=== PATIENT | female | born 1965 | race Caucasian/White ===

== ENCOUNTER 2016-04-19 12:55 | Emergency (ER) | payer OTHER ==
[~2016-04-19] VITALS: Ht 149.9 cm; Wt 63.5 kg
[2016-04-19 12:58] VITALS: TEMP 37.1; Ht 149.9 cm; Wt 63.5 kg
[2016-04-19] MEDS ORDERED: KETOROLAC TROMETHAMINE 30 MG/ML VIAL IV STA (13:14)
[2016-04-19] MEDS ORDERED: ONDANSETRON INJ 2 MG/ML 2 ML VIAL IV STA ×2 (13:14→15:13)
[2016-04-19] MEDS ORDERED: SODIUM CHLORIDE 0.9% 1000ML 1,000 ML IV STA (13:14)
[2016-04-19] MEDS ORDERED: CLR10 PO (13:28)
[2016-04-19] MEDS ORDERED: CYNI1000 SQ (13:28)
[2016-04-19] MEDS ORDERED: CHOL1000 PO (13:28)
[2016-04-19] MEDS ORDERED: DEXA0.5T PO (13:28)
[2016-04-19] MEDS ORDERED: ONDA4TAB46 PO (13:29)
[2016-04-19 13:33] LABS: BASO % 0.1 %; BASO ABS # 0.01 K/uL (0-0.2); COMPLETE YES; EOS % 0.4 %; IG% 0.3 %; LYMPH % 9.7 %; LYMPH ABS # 1.45 K/uL (1.2-3.4); MEAN CELL VOLUME 89.9 fL (80-100); MEAN CORPUSCULAR HEMOGLOBIN 31.7 pg (25-34); MEAN CORPUSCULAR HGB CONC 35.3 g/dl (32-36); MEAN PLATELET VOLUME 9.8 fL (7.4-10.4); MONO % 5.1 %; NEUT % 84.4 %; PLATELET COUNT 285 K/uL (130-400); RED BLOOD COUNT 5.23 M/uL (4.2-5.4); WHITE BLOOD COUNT 15.01 K/uL (4.8-10.8)
[2016-04-19 13:49] LABS: ALT/SGPT 21 U/L (12-78); BLOOD UREA NITROGEN 15 mg/dl (7-18); BUN/CREATININE RATIO 15.9 (10-20); CALCIUM 9.3 mg/dl (8.5-10.1); CARBON DIOXIDE 26 mmol/L (21-32); CHLORIDE 104 mmol/L (98-107); CREATININE 0.94 mg/dl (0.60-1.20); GLUCOSE 95 mg/dl (70-99); POTASSIUM 3.7 mmol/L (3.5-5.1); SODIUM 142 mmol/L (136-145)
[2016-04-19 13:52] LABS: ALKALINE PHOSPHATASE 68 U/L (45-117); AST/SGOT 13 U/L (15-37)
[2016-04-19] MEDS ORDERED: OPTIRAY 320 IV PRN (14:30)
[2016-04-19 14:57] LABS: URINE APPEARANCE CLEAR (CLEAR); URINE BILIRUBIN NEG (NEG); URINE COLOR YELLOW; URINE EPITHELIAL CELL AUTO >30 /lpf (0-5); URINE NITRITE NEG (NEG); URINE SPECIFIC GRAVITY 1.025 (1.000-1.030); UROBILINOGEN NEG (NEG); ZZUR CULT IF INDIC CLEAN CATCH YES
[2016-04-19] MEDS ORDERED: METOCLOPRAMIDE HCL INJ 5 MG/ML 2 ML VIAL IV STA (15:13)
[2016-04-19 15:14] LABS: MANUAL MICROSCOPIC REQUIRED? NO; REVIEW REQ? NO
[2016-04-19] MEDS ORDERED: ONDA4TAB10 SL (16:47)
[2016-04-19] MEDS ORDERED: ONDANSETRON HOME PACK 4MG OD TAB PO ONE (17:00)
--- NOTE | 2016-04-19 17:34 | DIAGNOSTIC IMAGING REPORT ---
CT OF THE ABDOMEN AND PELVIS WITH CONTRAST CLINICAL HISTORY: Abdominal pain. Leukocytosis. COMPARISON STUDY: CT of the abdomen and pelvis June 17, 2010. TECHNIQUE: Following IV administration of 119 mL of Optiray-320, axial images of the abdomen and pelvis were obtained from the lung bases to the proximal femurs. Images were reviewed in the axial, sagittal, and coronal planes. IV contrast was administered without complication. Oral contrast was administered. CT DOSE: 278.20 mGy.cm FINDINGS: The liver, spleen, adrenal glands, left kidney and pancreas are normal. A 1.4 cm water attenuation lesion arising from the upper pole of the right kidney is consistent with a cyst. Biliary ductal dilatation is unchanged since CT of June 17, 2010 and likely due to prior cholecystectomy. There is no pancreatic ductal dilatation. There is no peripancreatic infiltration. The caliber and wall thickness of small and large bowel are normal. There are scattered colonic diverticula. There is no evidence for acute diverticulitis. The appendix is normal. There is no lymphadenopathy. No pneumatosis, free air or portal venous gas is present. Skeletal structures are unremarkable. IMPRESSION: 1. No acute process within the abdomen or pelvis. Normal appendix. 2. Colonic diverticulosis without evidence for acute diverticulitis. 3. Stable biliary ductal dilatation since earlier CT. This is likely due to prior cholecystectomy. Electronically signed by: Gautam Fletcher M.D. 04/19/2016 5:32 PM Dictated Date/Time: 04/19/2016 5:26 PM
[2016-04-19 17:45] VITALS: BP 112/71; PULSE 98; O2SAT 98
--- NOTE | 2016-04-19 17:47 | EMERGENCY ROOM VISIT NOTE ---
History Report prepared by Zaria: Ute Kramer Under the Supervision of: Dr. Ignacio Lee M.D. First contact with patient: 13:05 Chief Complaint: GI ASSESSMENT Stated Complaint: STOMACH PAINS, NAUSEA Nursing Triage Summary: Pt c/o n/v/d since last night Pt also c/o diffuse abd pain History of Present Illness The patient is a 50 year old female who presents to the Emergency Room for a GI assessment. The patient has been experiencing nausea, vomiting, and diarrhea for the past 12 hours. She notes diffuse abdominal pain that she rates as a 5/ 10 in severity. She denies fever. 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 She notes that her family has been sick with similar symptoms. Source of History: patient Onset: 12 hours ago Position: abdomen (diffuse) Symptom Intensity: 5/10 Timing: constant Modifying Factors (Relieving): anti-emetics Associated Symptoms: + abdominal pain, + diarrhea, + nausea, + vomiting, No fevers Review of Systems See HPI for pertinent positives & negatives. A total of 10 systems reviewed and were otherwise negative. Past Medical & Surgical Surgical Problems: (1) H/O: hysterectomy (2) History of cholecystectomy Family History FH: cancer Hypertension Kidney disease Kidney stones Social History Smoking Status: Never Smoker Smokeless Tobacco Use: No Alcohol Use: none Marital Status: Housing Status: lives with significant other Occupation Status: unemployed Current/Historical Medications Scheduled Cholecalciferol (Vitamin D3), 1 TAB PO DAILY Cyanocobalamin (Cyanocobalamin), 1 DOSE SQ MONTHLY Dexamethasone (Dexamethasone), 0.25 MG PO DAILY Loratadine (Claritin), 10 MG PO DAILY Ondasetron Odt (Zofran Odt), 4 MG SL Q6H Scheduled PRN Ondansetron Hcl (Zofran), 4 MG PO Q6 PRN for Nausea Allergies Coded Allergies: Quinolones (Verified Allergy, Mild, 05/17/09) Ciprofloxacin (Unverified Allergy, Unknown, HIVES, 04/19/16) Sulfa Drugs (Verified Allergy, Unknown, HIVES, 04/19/16) Physical Exam Vital Signs Date Time Temp Pulse Resp B/P Pulse Ox O2 Delivery O2 Flow Rate FiO2 04/19/16 15:13 113 18 118/66 97 Room Air 04/19/16 12:58 37.1 120 18 120/66 97 Room Air Physical Exam CONSTITUTIONAL: Mild distress HEENT: No icterus, moist mucous membranes NECK: No meningismus, trachea is midline. CARDIOVASCULAR: Regular rate, normal perfusion RESPIRATORY: Unlabored breathing. Clear to auscultation. GASTROINTESTINAL: Minimal diffuse tenderness GENITOURINARY: No flank tenderness MUSCULOSKELETAL: Full range of motion NEUROLOGIC: No acute gross focal deficits. PSYCHIATRIC: Normal affect SKIN: Normal for ethnicity. Medical Decision & Procedures ER Provider Diagnostic Interpretation: Radiology results as stated below per my review and radiologist interpretation. CT OF THE ABDOMEN AND PELVIS WITH CONTRAST CLINICAL HISTORY: Abdominal pain. Leukocytosis. COMPARISON STUDY: CT of the abdomen and pelvis June 17, 2010. TECHNIQUE: Following IV administration of 119 mL of Optiray-320, axial images of the abdomen and pelvis were obtained from the lung bases to the proximal femurs. Images were reviewed in the axial, sagittal, and coronal planes. IV contrast was administered without complication. Oral contrast was administered. CT DOSE: 278.20 mGy.cm FINDINGS: The liver, spleen, adrenal glands, left kidney and pancreas are normal. A 1.4 cm water attenuation lesion arising from the upper pole of the right kidney is consistent with a cyst. Biliary ductal dilatation is unchanged since CT of June 17, 2010 and likely due to prior cholecystectomy. There is no pancreatic ductal dilatation. There is no peripancreatic infiltration. The caliber and wall thickness of small and large bowel are normal. There are scattered colonic diverticula. There is no evidence for acute diverticulitis. The appendix is normal. There is no lymphadenopathy. No pneumatosis, free air or portal venous gas is present. Skeletal structures are unremarkable. IMPRESSION: 1. No acute process within the abdomen or pelvis. Normal appendix. 2. Colonic diverticulosis without evidence for acute diverticulitis. 3. Stable biliary ductal dilatation since earlier CT. This is likely due to prior cholecystectomy. Electronically signed by: Gautam Fletcher M.D. 04/19/2016 5:32 PM Dictated Date/Time: 04/19/2016 5:26 PM Laboratory Results 04/19/16 13:20 Red Blood Count 5.23, Mean Corpuscular Volume 89.9, Mean Corpuscular Hemoglobin 31.7, Mean Corpuscular Hemoglobin Concent 35.3, Mean Platelet Volume 9.8, Neutrophils (%) (Auto) 84.4, Lymphocytes (%) (Auto) 9.7, Monocytes (%) (Auto) 5.1, Eosinophils (%) (Auto) 0.4, Basophils (%) (Auto) 0.1, Neutrophils # (Auto) 12.69, Lymphocytes # (Auto) 1.45, Monocytes # (Auto) 0.76, Eosinophils # (Auto) 0.06, Basophils # (Auto) 0.01 04/19/16 13:20 Test 04/19/16 13:20 04/19/16 14:15 White Blood Count 15.01 K/uL (4.8-10.8) Red Blood Count 5.23 M/uL (4.2-5.4) Hemoglobin 16.6 g/dL (12.0-16.0) Hematocrit 47.0 % (37-47) Mean Corpuscular Volume 89.9 fL (80-100) Mean Corpuscular Hemoglobin 31.7 pg (25-34) Mean Corpuscular Hemoglobin Concent 35.3 g/dl (32-36) Platelet Count 285 K/uL (130-400) Mean Platelet Volume 9.8 fL (7.4-10.4) Neutrophils (%) (Auto) 84.4 % Lymphocytes (%) (Auto) 9.7 % Monocytes (%) (Auto) 5.1 % Eosinophils (%) (Auto) 0.4 % Basophils (%) (Auto) 0.1 % Neutrophils # (Auto) 12.69 K/uL (1.4-6.5) Lymphocytes # (Auto) 1.45 K/uL (1.2-3.4) Monocytes # (Auto) 0.76 K/uL (0.11-0.59) Eosinophils # (Auto) 0.06 K/uL (0-0.5) Basophils # (Auto) 0.01 K/uL (0-0.2) RDW Standard Deviation 41.0 fL (36.4-46.3) RDW Coefficient of Variation 12.6 % (11.5-14.5) Immature Granulocyte % (Auto) 0.3 % Immature Granulocyte # (Auto) 0.04 K/uL (0.00-0.02) Anion Gap 12.0 mmol/L (3-11) Est Creatinine Clear Calc Drug Dose 58.0 ml/min Estimated GFR () 82.0 Estimated GFR (Non- 70.7 BUN/Creatinine Ratio 15.9 (10-20) Calcium Level 9.3 mg/dl (8.5-10.1) Total Bilirubin 0.5 mg/dl (0.2-1) Direct Bilirubin < 0.1 mg/dl (0-0.2) Aspartate Amino Transf (AST/SGOT) 13 U/L (15-37) Alanine Aminotransferase (ALT/SGPT) 21 U/L (12-78) Alkaline Phosphatase 68 U/L (45-117) Total Protein 8.0 gm/dl (6.4-8.2) Albumin 3.7 gm/dl (3.4-5.0) Lipase 84 U/L (73-393) Urine Color YELLOW Urine Appearance CLEAR (CLEAR) Urine pH 5.0 (4.5-7.5) Urine Specific [place] 1.025 (1.000-1.030) Urine Protein NEG (NEG) Urine Glucose (UA) NEG (NEG) Urine Ketones NEG (NEG) Urine Occult Blood 1+ (NEG) Urine Nitrite NEG (NEG) Urine Bilirubin NEG (NEG) Urine Urobilinogen NEG (NEG) Urine Leukocyte Esterase NEG (NEG) Urine WBC (Auto) 1-5 /hpf (0-5) Urine RBC (Auto) 0-4 /hpf (0-4) Urine Hyaline Casts (Auto) 1-5 /lpf (0-5) Urine Epithelial Cells (Auto) >30 /lpf (0-5) Urine Bacteria (Auto) 1+ (NEG) Labs reviewed by ED physician. Medications Administered Medications (Trade) Dose Ordered Sig/Veronika Route Start Time Stop Time Status Last Admin Dose Admin Ketorolac Tromethamine (Toradol Inj) 15 mg NOW STAT IV 04/19/16 13:14 04/19/16 13:16 DC 04/19/16 13:25 15 MG Ondansetron HCl 4 mg 4 mg NOW STAT IV 04/19/16 13:14 04/19/16 13:16 DC 04/19/16 13:25 4 MG Sodium Chloride (Nss 1000ml) 1,000 ml @ 0 mls/hr Q0M STAT IV 04/19/16 13:14 04/19/16 13:16 DC 04/19/16 13:25 999 MLS/HR Ondansetron HCl (Zofran Inj) 4 mg NOW STAT IV 04/19/16 15:13 04/19/16 15:15 DC 04/19/16 15:13 4 MG Metoclopramide HCl (Reglan Inj) 10 mg NOW STAT IV 04/19/16 15:13 04/19/16 15:15 DC 04/19/16 15:13 10 MG ED Course 1307: Past medical records reviewed. The patient was evaluated in room A9B. A complete history and physical examination was performed. 1314: NSS 1000 ml IV wide open, Zofran 4 mg IV, Toradol 15 mg IV 1455: I reassessed the patient at this time. She getting ready for CT. 1513: Reglan 10 mg IV, Zofran 4 mg IV 1700: Zofran 4 mg PO homepack 1741: I reassessed the patient at this time. She is feeling better and resting comfortably. I discussed the results and treatment plan with the patient. I answered all pertaining questions that she had. She expressed understanding and verbalized agreement. The patient will be discharged home. Medical Decision Differential diagnoses includes viral syndrome, electrolyte abnormality. 50-year-old presents to the emergency room for evaluation of roughly 1 day of vomiting abdominal pain and diarrhea. Hydration, antiemetics and labs were obtained. White count was noted to be 15.5 which is somewhat concerning with mild diffuse abdominal pain in this 50-year-old with a known history of diverticulitis. We discussed the pros and cons risks and benefits of CT versus observation as outpatient and decision made to obtain CT which was subsequently negative. Reexamination prior to discharge at 5:40 PM patient is comfortable. She was given Zofran home pack as well as prescription. Impression Primary Impression: Gastroenteritis Scribe Attestation The scribe's documentation has been prepared under my direction and personally reviewed by me in its entirety. I confirm that the note above accurately reflects all work, treatment, procedures, and medical decision making performed by me. Departure Information Dispostion Home / Self-Care Prescriptions Ondasetron Odt (ZOFRAN ODT) 4 Mg Tab 4 MG SL Q6H for Nausea, #20 TAB Prov: Ignacio Lee MD 04/19/16 Referrals No Doctor, Assigned (PCP) Sherry Ortiz M.D. Forms HOME CARE DOCUMENTATION FORM, IMPORTANT VISIT INFORMATION Patient Instructions A Signature Page, ED Gastroenteritis Viral, [facility]
== END 2016-04-19 17:46 | disposition home or self-care (01) ==
LOC: C.EDB 12:57 → C.EDA 17:46
DX: K52.9 Noninfective gastroenteritis and colitis, unspecified (principal)

== ENCOUNTER 2016-09-27 10:40 | Emergency (ER) | payer OTHER ==
[~2016-09-27] VITALS: Ht 149.9 cm; Wt 64.8 kg
[~2016-09-27 10:40] MED LIST: CHOL1000 PO; CLR10 PO; CYNI1000 SQ; DEXA0.5T PO; ONDA4TAB10 SL; ONDA4TAB46 PO
[2016-09-27 10:57] VITALS: TEMP 36.7; Ht 149.9 cm; Wt 64.8 kg
[2016-09-27] MEDS ORDERED: SODIUM CHLORIDE 0.9% 1000ML 1,000 ML IV STA ×2 (11:23→12:34)
[2016-09-27] MEDS ORDERED: ONDANSETRON INJ 2 MG/ML 2 ML VIAL IV STA (11:23)
[2016-09-27 11:37] LABS: BASO % 0.2 %; BASO ABS # 0.01 K/uL (0-0.2); COMPLETE YES; EOS % 0.6 %; HEMATOCRIT 48.4 % (37-47); IG% 0.3 %; LYMPH % 21.6 %; LYMPH ABS # 1.43 K/uL (1.2-3.4); MEAN CELL VOLUME 90.3 fL (80-100); MEAN CORPUSCULAR HEMOGLOBIN 30.4 pg (25-34); MEAN CORPUSCULAR HGB CONC 33.7 g/dl (32-36); MEAN PLATELET VOLUME 9.4 fL (7.4-10.4); MONO % 8.3 %; PLATELET COUNT 316 K/uL (130-400); RED BLOOD COUNT 5.36 M/uL (4.2-5.4); WHITE BLOOD COUNT 6.61 K/uL (4.8-10.8)
[2016-09-27 11:42] LABS: URINE APPEARANCE CLEAR (CLEAR); URINE BILIRUBIN NEG (NEG); URINE COLOR YELLOW; URINE EPITHELIAL CELL AUTO >30 /lpf (0-5); URINE NITRITE NEG (NEG); URINE PH 5.5 (4.5-7.5); URINE SPECIFIC GRAVITY 1.021 (1.000-1.030); UROBILINOGEN NEG (NEG)
[2016-09-27 11:45] LABS: BUN/CREATININE RATIO 8.7 (10-20); CALCIUM 8.8 mg/dl (8.5-10.1); CREATININE 0.95 mg/dl (0.60-1.20); POTASSIUM 3.8 mmol/L (3.5-5.1)
[2016-09-27 11:47] LABS: MANUAL MICROSCOPIC REQUIRED? NO; REVIEW REQ? NO
--- NOTE | 2016-09-27 15:52 | DIAGNOSTIC IMAGING REPORT ---
ABDOMINAL ULTRASOUND, RIGHT UPPER QUADRANT HISTORY: elevated liver enzymes, eval liver, gall stones. COMPARISON: Abdomen and pelvis CT 04/19/2016. FINDINGS: Pancreas: The pancreatic tail is obscured by overlying bowel gas. The remaining portions of the pancreas are within normal limits. Liver: Unremarkable. Gallbladder: The gallbladder is surgically absent. CBD: 9 mm. This remains unchanged. Right kidney: No hydronephrosis. Stable 1.4 cm cyst within the upper pole. IMPRESSION: 1. Cholecystectomy. 2. No change in the 9 mm common bile duct. This is likely due to the patient's postcholecystectomy state. Electronically signed by: Robert Funk M.D. 09/27/2016 3:51 PM Dictated Date/Time: 09/27/2016 3:49 PM
--- NOTE | 2016-09-27 16:29 | EMERGENCY ROOM VISIT NOTE ---
History First contact with patient: 11:04 Chief Complaint: DIARRHEA Stated Complaint: NAUSEA, DIARRHEA Nursing Triage Summary: Pt c/o n/v/d, started ; she was better Wednesday and Wednesday and then it started again today. Denies abdominal pain. History of Present Illness The patient is a 51 year old female who presents to the Emergency Room with complaints of diarrhea. Patient states 3 days ago she had several bouts of diarrhea associated with nausea, vomiting, and fevers up to 103. She took Imodium for the diarrhea which did seem to help. She has felt much better for the past 2 days, but her diarrhea returned again this morning. She states it is loose and sometimes watery, nonbloody and not black or coffee grounds appearing, 6 episodes so far today. Associated abdominal cramping with bowel movements only. She has associated nausea today but denies vomiting, fever/ chills, abdominal pain. Patient states that she had a salad with eggs on it the night before her initial symptoms started, but cannot think of anything else unusual she may have eaten recently. She denies any recent antibiotic use , travel, exposure to clean water, or recent sick contacts. She is able to keep fluids down, but states she has very little appetite. Past medical history significant for adrenal hyperplasia and on chronic steroids. Review of Systems A complete 10 point review of systems was reviewed with the patient with pertinent positives and negatives as per history of present illness. All else were negative. Past Medical/Surgical History Surgical Problems: (1) H/O: hysterectomy (2) History of cholecystectomy Family History FH: cancer Hypertension Kidney disease Kidney stones Social History Smoking Status: Never Smoker Alcohol Use: none Marital Status: Housing Status: lives with significant other Occupation Status: unemployed Current/Historical Medications Scheduled Cholecalciferol (Vitamin D3), 1 TAB PO DAILY Cyanocobalamin (Cyanocobalamin), 1 DOSE SQ MONTHLY Dexamethasone (Dexamethasone), 0.25 MG PO HS Loratadine (Claritin), 10 MG PO DAILY Scheduled PRN Ondansetron Hcl (Zofran), 4 MG PO Q6 PRN for Nausea Allergies Coded Allergies: Quinolones (Verified Allergy, Mild, 09/27/16) Ciprofloxacin (Unverified Allergy, Unknown, HIVES, 09/27/16) Sulfa Drugs (Verified Allergy, Unknown, HIVES, 09/27/16) Physical Exam Vital Signs Date Time Temp Pulse Resp B/P (MAP) Pulse Ox O2 Delivery O2 Flow Rate FiO2 09/27/16 17:32 84 16 103/71 96 09/27/16 16:20 87 09/27/16 15:48 79 18 114/75 98 09/27/16 14:14 86 17 115/61 99 Room Air 09/27/16 12:35 82 16 127/75 98 09/27/16 12:19 95 09/27/16 10:57 36.7 116 18 132/78 97 Room Air Physical Exam CONSTITUTIONAL: No acute distress. Nontoxic-appearing, moderately dehydrated. Alert and oriented X 4 with normal affect. HEENT: Normocephalic, atraumatic. Pupils equal, round and reactive to light, EOMI. TMs normal. Pharynx normal. Dry mucous membranes. NECK: Supple, full active range of motion without discomfort. RESPIRATORY: Clear to auscultation bilaterally with no wheezing, crackles, rhonchi or stridor. Equal expansion bilaterally. CARDIOVASCULAR: Regular rate and rhythm with no murmurs, rubs or gallops. Normal peripheral perfusion. No edema. GASTROINTESTINAL: Soft, nontender, nondistended. Normal bowel sounds present in all quadrants. MUSCULOSKELETAL: Full range of motion of all joints without discomfort. INTEGUMENTARY: No rash or other significant dermatologic conditions noted. NEUROLOGIC: Cranial nerves II-XII grossly intact. No focal neurologic deficits noted. Medical Decision & Procedures ER Provider Diagnostic Interpretation: ABDOMINAL ULTRASOUND, RIGHT UPPER QUADRANT HISTORY: elevated liver enzymes, eval liver, gall stones. COMPARISON: Abdomen and pelvis CT 04/19/2016. FINDINGS: Pancreas: The pancreatic tail is obscured by overlying bowel gas. The remaining portions of the pancreas are within normal limits. Liver: Unremarkable. Gallbladder: The gallbladder is surgically absent. CBD: 9 mm. This remains unchanged. Right kidney: No hydronephrosis. Stable 1.4 cm cyst within the upper pole. IMPRESSION: 1. Cholecystectomy. 2. No change in the 9 mm common bile duct. This is likely due to the patient's postcholecystectomy state. Laboratory Results 09/27/16 11:09 Red Blood Count 5.36, Mean Corpuscular Volume 90.3, Mean Corpuscular Hemoglobin 30.4, Mean Corpuscular Hemoglobin Concent 33.7, Mean Platelet Volume 9.4, Neutrophils (%) (Auto) 69.0, Lymphocytes (%) (Auto) 21.6, Monocytes (%) (Auto) 8.3, Eosinophils (%) (Auto) 0.6, Basophils (%) (Auto) 0.2, Neutrophils # (Auto) 4.56, Lymphocytes # (Auto) 1.43, Monocytes # (Auto) 0.55, Eosinophils # (Auto) 0.04, Basophils # (Auto) 0.01 09/27/16 11:09 Test 09/27/16 11:05 09/27/16 11:09 09/27/16 14:50 Urine Color YELLOW Urine Appearance CLEAR (CLEAR) Urine pH 5.5 (4.5-7.5) Urine Specific [place] 1.021 (1.000-1.030) Urine Protein NEG (NEG) Urine Glucose (UA) NEG (NEG) Urine Ketones 2+ (NEG) Urine Occult Blood 2+ (NEG) Urine Nitrite NEG (NEG) Urine Bilirubin NEG (NEG) Urine Urobilinogen NEG (NEG) Urine Leukocyte Esterase NEG (NEG) Urine WBC (Auto) 1-5 /hpf (0-5) Urine RBC (Auto) 0-4 /hpf (0-4) Urine Hyaline Casts (Auto) 5-10 /lpf (0-5) Urine Epithelial Cells (Auto) >30 /lpf (0-5) Urine Bacteria (Auto) 1+ (NEG) White Blood Count 6.61 K/uL (4.8-10.8) Red Blood Count 5.36 M/uL (4.2-5.4) Hemoglobin 16.3 g/dL (12.0-16.0) Hematocrit 48.4 % (37-47) Mean Corpuscular Volume 90.3 fL (80-100) Mean Corpuscular Hemoglobin 30.4 pg (25-34) Mean Corpuscular Hemoglobin Concent 33.7 g/dl (32-36) Platelet Count 316 K/uL (130-400) Mean Platelet Volume 9.4 fL (7.4-10.4) Neutrophils (%) (Auto) 69.0 % Lymphocytes (%) (Auto) 21.6 % Monocytes (%) (Auto) 8.3 % Eosinophils (%) (Auto) 0.6 % Basophils (%) (Auto) 0.2 % Neutrophils # (Auto) 4.56 K/uL (1.4-6.5) Lymphocytes # (Auto) 1.43 K/uL (1.2-3.4) Monocytes # (Auto) 0.55 K/uL (0.11-0.59) Eosinophils # (Auto) 0.04 K/uL (0-0.5) Basophils # (Auto) 0.01 K/uL (0-0.2) RDW Standard Deviation 42.4 fL (36.4-46.3) RDW Coefficient of Variation 12.9 % (11.5-14.5) Immature Granulocyte % (Auto) 0.3 % Immature Granulocyte # (Auto) 0.02 K/uL (0.00-0.02) Anion Gap 9.0 mmol/L (3-11) Est Creatinine Clear Calc Drug Dose 57.4 ml/min Estimated GFR () 80.4 Estimated GFR (Non- 69.4 BUN/Creatinine Ratio 8.7 (10-20) Calcium Level 8.8 mg/dl (8.5-10.1) Magnesium Level 2.0 mg/dl (1.8-2.4) Total Bilirubin 0.6 mg/dl (0.2-1) Direct Bilirubin 0.2 mg/dl (0-0.2) Aspartate Amino Transf (AST/SGOT) 83 U/L (15-37) Alanine Aminotransferase (ALT/SGPT) 448 U/L (12-78) Alkaline Phosphatase 148 U/L (45-117) Total Protein 8.3 gm/dl (6.4-8.2) Albumin 3.9 gm/dl (3.4-5.0) Lipase 87 U/L (73-393) Acetaminophen Level 2 ug/ml (10-30) Hepatitis B Surface Antigen NEG (NEG) Hepatitis C Antibody NEG (NEG) Medications Administered Medications (Trade) Dose Ordered Sig/Veronika Route Start Time Stop Time Status Last Admin Dose Admin Ondansetron HCl (Zofran Inj) 4 mg NOW STAT IV 09/27/16 11:23 09/27/16 11:27 DC 09/27/16 11:32 4 MG Sodium Chloride 1,000 ml @ 999 mls/hr Q1H1M STAT IV 09/27/16 11:23 09/27/16 12:23 DC 09/27/16 11:32 999 MLS/HR Sodium Chloride 1,000 ml @ 999 mls/hr Q1H1M STAT IV 09/27/16 12:34 09/27/16 13:34 DC 09/27/16 12:46 999 MLS/HR Medical Decision CC: Patient presenting with complaint of diarrhea Interpretation of Labs: No leukocytosis, no anemia, no significant electrolyte abnormalities, normal renal function. Significantly elevated liver enzymes which appears to be acute, with normal T bili, normal lipase. Acute hepatitis panel added, preliminary testing is negative, remaining testing sender out and pending. Differential Diagnosis: Includes, but not limited to gastroenteritis viral versus bacterial, food borne pathogen, diverticulitis, enterocolitis, dehydration, electrolyte abnormality, post viral hepatitis, acute hepatitis, pancreatitis, cholecystitis. Medication Reconciliation: I attest that I have personally reviewed the patient' s current medication list. Vital signs review: I reviewed the patient's vital signs and interpret them as follows: T: Afebrile; BP: Normotensive; HR: Tachycardic, resolved after IV fluids; RR: Within normal limits; Pulse Ox: Within normal limits on room air. Blood pressure screening: The patient was found to have normal blood pressure on screening and does not require follow-up for repeat blood pressure check. Summary: Patient was evaluated at bedside, history of physical exam performed. Patient is alert and oriented, in no acute distress and nontoxic appearing, resting calmly in the stretcher. She does appear somewhat dehydrated with dry oral mucous membranes and dry skin. Abdomen is soft and completely nontender to deep palpation, with normal bowel sounds present. Patient is afebrile with normal vital signs. Given that patient is well-appearing and has no abdominal tenderness on exam, and has had negative CT imaging done a few months ago of the abdomen/pelvis, will not perform CT imaging at this time. Orders were placed at bedside for labs, UA, IV fluid hydration, nausea medicine , stool culture to evaluate for infectious process. Patient discussed with Dr. Pruett, who agrees with my assessment and plan. Patient was able to provide stool sample, sent to lab for culture. I do not suspect C.diff due to partially formed stool, lack of significant risk factors, and well appearing. Labs reviewed, concerning for acute elevation of liver enzymes. Hepatitis panel ordered and right upper quadrant ultrasound done, which are unremarkable. Patient reassessed multiple times throughout ED stay, she feels much better after IV hydration, and has been tolerating PO well. Patient was updated on all results and plan for discharge home, encouraged to have very close PCP follow-up and to have her liver enzymes retested within the next week. She was also instructed on return precautions should her symptoms worsen. Patient verbalized understanding and was discharged home in stable condition. Impression Primary Impression: Diarrhea Additional Impressions: Dehydration Elevated liver enzymes Departure Information Dispostion Home / Self-Care Condition GOOD Referrals Alma Bingham (PCP) Patient Instructions ED Dehydration, ED Diet Vomiting Diarrhea, ED Hepatitis Cause Unkn Test Pen, [facility] Additional Instructions You have been treated in the Emergency Department today for Diarrhea and Dehydration. Laboratory results have ruled out any emergent reasons for further evaluation or admission. Your labs did show elevated liver function tests today. A hepatitis panel was sent and results are still pending from this. Stool culture studies are also pending. All results should be back in the next 3 days, we will call you regarding any positive results. It is important for you to follow closely with your PCP and to have your liver function tests repeated in one week. It is ESSENTIAL that you maintain adequate hydration with oral fluids! Some suggestions include: - Water is the IDEAL replacement for lost fluids. You should initially sip at the water to help facilitate increased intestinal absorption rate and to decrease the possibility of nausea/vomiting. - Carbohydrate/Electrolyte-Containing Drinks (i.e. Gatorade, Powerade, Pedialyte). All of these are good choices, but it is important to remember that all of these drinks contain a high concentration of sugar. - Popsicles, ice chips, and fruit juices are all other options. - My FAVORITE dehydration remedy is to mix a 1:1 solution of bottled Gatorade with bottled water. This dilution allows for a palatable flavor with added benefit of a reduction in the amount of sugar consumption. As with all Emergency Department visits, you should follow-up with your Primary Care Provider in 2-3 days for reevaluation. Return to the Emergency Department if your current symptoms worsen despite treatment course outlined above, or if you develop any of the following symptoms : increased thirst, weakness, dizziness, palpitations, confusion, sluggishness, fainting, inability to sweat, or decreased urine output. Problem Qualifiers Primary Impression: Diarrhea Diarrhea type: unspecified type Qualified Codes: R19.7 - Diarrhea, unspecified
[2016-09-27 17:32] VITALS: BP 103/71; PULSE 84; O2SAT 96
== END 2016-09-27 17:33 | disposition home or self-care (01) ==
LOC: C.EDB 10:41 → C.EDC 17:33
DX: R19.7 Diarrhea, unspecified (principal); E86.0 Dehydration; R74.8 Abnormal levels of other serum enzymes; Z90.710 Acquired absence of both cervix and uterus; Z90.49 Acquired absence of other specified parts of digestive tract; Z79.899 Other long term (current) drug therapy

== ENCOUNTER → 2016-10-30 | Outpatient (CLI) | payer OTHER ==
[~2016-10-30] MED LIST changes: -ONDA4TAB10 SL
--- NOTE | 2016-10-30 15:30 | MAMMOGRAPHY REPORT ---
BILATERAL DIGITAL SCREENING MAMMOGRAM TOMOSYNTHESIS WITH CAD: 10/30/2016 CLINICAL HISTORY: Routine screening. Patient has no complaints. TECHNIQUE: Breast tomosynthesis in addition to standard 2D mammography was performed. Current study was also evaluated with a Computer Aided Detection (CAD) system. COMPARISON: Comparison is made to exams dated: 10/29/2015 mammogram - [facility], mammogram, 09/21/2013 mammogram, 09/27/2012 mammogram, 09/20/2012 mammogram, and 09/18/2011 mammo gram. BREAST COMPOSITION: The tissue of both breasts is heterogeneously dense, which may obscure small mas ses. FINDINGS: There is a stable 6.5 mm circumscribed mass in the medial posterior left breast, that appea rs similar on all available prior mammograms dating back to at least 09/18/2011, therefore likely dedra ign. There are a few benign-appearing calcifications in the left breast. No new suspicious mass, ar chitectural distortion or cluster of microcalcifications is seen. IMPRESSION: ACR BI-RADS CATEGORY 1: NEGATIVE There is no mammographic evidence of malignancy. A 1 year screening mammogram is recommended. The pa tient will receive written notification of the results. Approximately 10% of breast cancers are not detected with mammography. A negative mammographic report should not delay biopsy if a clinically suggestive mass is present. Anca Whiting M.D. ay/:10/30/2016 15:07:30 Engineering Technical Analyst: Greer CHEN(Nito)(Altagracia), [facility] letter sent: Normal 1/2 BI-RADS Code: ACR BI-RADS Category 1: Negative
== END | disposition home or self-care (01) ==
LOC: C.MAMM 13:35
PROVIDERS: ATTEND Family Medicine
DX: Z12.31 Encounter for screening mammogram for malignant neoplasm of breast (principal); N63 Unspecified lump in breast

== ENCOUNTER → 2017-03-24 | Outpatient (CLI) | payer OTHER ==
--- NOTE | 2017-03-24 13:17 | DIAGNOSTIC IMAGING REPORT ---
ULTRASOUND RIGHT UPPER QUADRANT ABDOMEN CLINICAL HISTORY: Nausea. COMPARISON STUDY: Abdominal CT dated 04/19/2016. TECHNIQUE: Real-time, grayscale, and color flow sonography of the right upper quadrant of the abdomen was performed. Images are reviewed in the transverse and longitudinal planes. FINDINGS: Liver: The liver is normal in size and echotexture. There is mild central intrahepatic biliary ductal dilatation. The main portal vein is patent. Gallbladder: The gallbladder is surgically absent. The common bile duct measures up to 1.0 cm in diameter. This is similar to previous. Pancreas: Visualized portions of the pancreatic head and body are normal in appearance. Right kidney: Survey images of the right kidney demonstrate normal size and echotexture. There is no hydronephrosis. A 1.3 cm cyst is noted in the upper pole. Ascites: None. IMPRESSION: Unremarkable sonographic assessment of the right upper quadrant noting status post cholecystectomy. Electronically signed by: David Augustin M.D. 03/24/2017 1:16 PM Dictated Date/Time: 03/24/2017 1:15 PM
== END | disposition home or self-care (01) ==
LOC: C.ULTR 11:56
PROVIDERS: ATTEND Internal Medicine Gastroenterology
DX: R11.0 Nausea (principal); R10.13 Epigastric pain; Z90.49 Acquired absence of other specified parts of digestive tract

== ENCOUNTER → 2017-08-10 | Outpatient (CLI) | payer OTHER ==
--- NOTE | 2017-08-10 13:02 | DIAGNOSTIC IMAGING REPORT ---
LEFT FOOT 3 VIEWS CLINICAL HISTORY: Crushing injury. Findings on 3 views of the left foot are obtained. No prior studies are available for comparison at the time of dictation. The skeletal structures are well mineralized. No fracture is identified. Mild hallux valgus is suggested with minimal arthritic change at the first metatarsophalangeal joint. There is a large plantar calcaneal enthesophyte. An os trigonum is incidentally noted. Mild dorsal soft tissue edema is noted. IMPRESSION: 1. Mild dorsal soft tissues along with no radiographic evidence of left foot fracture. 2. Mild degenerative change and heel spur as above. Electronically signed by: David Augustin M.D. 08/10/2017 1:00 PM Dictated Date/Time: 08/10/2017 12:58 PM
== END | disposition home or self-care (01) ==
LOC: C.RAD1850 12:34
PROVIDERS: ATTEND Physician Assistant
DX: S97.82XA Crushing injury of left foot, initial encounter (principal); X58.XXXA Exposure to other specified factors, initial encounter

== ENCOUNTER → 2017-11-02 | Outpatient (CLI) | payer OTHER ==
--- NOTE | 2017-11-02 16:19 | MAMMOGRAPHY REPORT ---
BILATERAL DIGITAL SCREENING MAMMOGRAM TOMOSYNTHESIS WITH CAD: 11/02/2017 CLINICAL HISTORY: Routine screening. Patient has no complaints. TECHNIQUE: The study was acquired using full field digital technology and interpreted from soft copy. Breast tomosynthesis in addition to standard 2D mammography was performed. Current study was also ev aluated with a Computer Aided Detection (CAD) system. COMPARISON: Comparison is made to exams dated: 10/30/2016 mammogram, 10/29/2015 mammogram - [facility], 09/25/2014 mammogram, 09/21/2013 mammogram, 09/27/2012 mammogram, and 09/20/2012 mamm ogram. BREAST COMPOSITION: The tissue of both breasts is heterogeneously dense, which may obscure small mass es. FINDINGS: There is a 5 mm nodular asymmetry with associated calcification in the superior, posterior right breast, only seen on the MLO view that is new comparing to prior mammograms. This is thought t o project laterally based on the tomosynthesis localizer bar. Although this could represent calcific ations within a cyst, additional spot compression tomosynthesis, exaggerated lateral CC tomosynthesis views and possible ultrasound are recommended. There is a stable 7 mm focal asymmetry in the lower inner left breast. A few scattered benign rim ca lcifications. No other suspicious mass, architectural distortion or cluster of microcalcifications is seen. IMPRESSION: ACR BI-RADS CATEGORY 0: INCOMPLETE EVALUATION: NEED ADDITIONAL IMAGING EVALUATION The 5 mm nodular asymmetry and associated calcification in the superior, posterior right breast on th e MLO view needs additional evaluation. The patient will be called to schedule an appointment. Some breast cancers are not detected with mammography. A negative mammographic report should not gabby y biopsy if a clinically suggestive mass is present. Anca Whiting M.D. ay/:11/02/2017 15:40:57 Hull And Deck Remover: RT Veronica(Nito)(Altagracia), [facility] letter sent: Addl Imaging 0 BI-RADS Code: ACR BI-RADS Category 0: Incomplete Evaluation: Need Additional Imaging Evaluation
== END | disposition home or self-care (01) ==
LOC: C.MAMM 13:27
PROVIDERS: ATTEND Family Medicine
DX: Z12.31 Encounter for screening mammogram for malignant neoplasm of breast (principal); N64.89 Other specified disorders of breast; R92.1 Mammographic calcification found on diagnostic imaging of breast

== ENCOUNTER → 2017-11-11 | Outpatient (CLI) | payer OTHER ==
--- NOTE | 2017-11-11 14:55 | MAMMOGRAPHY REPORT ---
UNILATERAL RIGHT DIGITAL DIAGNOSTIC MAMMOGRAM TOMOSYNTHESIS AND TARGETED RIGHT ULTRASOUND: 11/11/2017 CLINICAL HISTORY: Callback from screening mammogram for right breast calcifications and associated as ymmetry. TECHNIQUE: The study was acquired using full field digital technology and interpreted from soft copy. Breast tomosynthesis in addition to standard 2D mammography was performed. Spot magnification right CC and ML views and spot compression right CC and MLO tomosynthesis images were obtained. COMPARISON: Comparison is made to exams dated: 11/02/2017 mammogram, 10/30/2016 mammogram, 10/29/2015 m ammogram - [facility], 09/25/2014 mammogram, 09/21/2013 mammogram, and 09/27/2012 mamm ogram. BREAST COMPOSITION: The tissue of right breast is heterogeneously dense, which may obscure small mass es. FINDINGS: Spot compression views demonstrate a subtle low density 6 mm ovoid asymmetry within the right upper o uter quadrant, best seen on the MLO tomosynthesis images. A few calcifications are seen within the a symmetry, which are shown to layer on the spot magnification ML view, and are therefore consistent wi th calcifications layering within a cyst. Targeted ultrasound was performed of the right upper outer quadrant in the region of the mammographic asymmetry and calcifications. In the right breast at 10: 00, 7 cm from the nipple, there is an oval circumscribed anechoic mass which measures 4 x 6 mm. This is consistent with a benign cyst and corresponds with the mammographic findings. IMPRESSION: ACR BI-RADS CATEGORY 2: BENIGN, ULTRASOUND ACR BI-RADS CATEGORY 2: BENIGN The mammographic asymmetry and associated calcifications correspond with a benign 6 mm cyst in the ri ght 10:00 breast on ultrasound. Findings are benign and compatible with a cyst with internal layerin g calcifications. There is no mammographic or sonographic evidence of malignancy. A 1 year screening mammogram is recommended.(11/12/2018) The patient has been verbally notified of the results. Some breast cancers are not detected with mammography. A negative mammographic report should not gabby y biopsy if a clinically suggestive mass is present. Ashia Gamble M.D. ah/:11/11/2017 10:18:42 Quality Assurance Calibrator: RT Veronica(R)(M), [facility]; Ashia Gamble MD, [facility] letter sent: Normal 04/13 OVERALL STUDY BIRADS: 2 Benign
--- NOTE | 2017-11-18 13:31 | CODING QUERY NO DIAGNOSIS ---
TREATMENT RENDERED WITHOUT A DIAGNOSIS To promote full compliance with coding requirements relating to patient care, physician participation is requested in all cases of tapper operator uncertainty. Please assist us with providing a diagnosis/symptom for the test(s) below: A diagnosis/symptom was not documented on your Order. A valid diagnosis/symptom is required to bill all insurances. Please remember that we are unable to code a diagnosis of rule out, probable, possible, questionable, or suspected. Tests that require a diagnosis: DOS: 11/11/17 * Diagnostic Mamm/Ultrasound Breast DIAGNOSIS: Provider Signature: Date: Thank you Michelle Carcamo Health Information Management Once completed, please kindly fax back to [phone] For questions please call [phone]
== END | disposition home or self-care (01) ==
LOC: C.MAMM 09:53
PROVIDERS: ATTEND Family Medicine
DX: N60.01 Solitary cyst of right breast (principal)